=== PATIENT | male | born 1980 ===

== ENCOUNTER 2019-01-16 08:07 | Observation (INO) | payer SELFPAY ==
--- NOTE | 2019-01-16 08:30 | C.PDOC ---
History Of Present Illness Patient is a 38yo male with no known PMH who presents to the ED with sudden onset, nonexertional, nonradiating left-sided chest pain that began around midnight last night while lying in bed. Patient admits to using cocaine for the past 3 days, reports previous episode of similar chest pain one year ago when he last used cocaine. Denies other drug use. Patient reports one episode of vomiting last night accompanied by SOB. No known history of HTN, DM, or family history of CO. <Tanna Burrell - Last Filed: 01/16/19 10:43> <Jessica Tapia - Last Filed: 01/16/19 10:28> <Tanna Burrell - Last Filed: 01/16/19 10:43> Time Seen by Provider: 01/16/19 08:08 Chief Complaint (Nursing): Chest Pain Past Medical History Vital Signs: Last Vital Signs Temp 97 F L 01/16/19 08:13 Pulse 69 01/16/19 08:13 Resp 18 01/16/19 08:13 BP 151/95 H 01/16/19 08:13 Pulse Ox 100 01/16/19 09:55 <Jessica Tapia - Last Filed: 01/16/19 10:28> Vital Signs: Last Vital Signs Temp 97 F L 01/16/19 08:13 Pulse 69 01/16/19 08:13 Resp 18 01/16/19 08:13 BP 151/95 H 01/16/19 08:13 Pulse Ox 100 01/16/19 08:13 Primary Care Provider: FAMILY PROVIDER,NO - Medical History PMH: No Chronic Diseases Family History: States: No Known Family Hx - Social History Hx Alcohol Use: Yes Hx Substance Use: Yes - Immunization History Hx Tetanus Toxoid Vaccination: No Hx Influenza Vaccination: No Hx Pneumococcal Vaccination: No <Tanna Burrell - Last Filed: 01/16/19 10:43> Review Of Systems Except As Marked, All Systems Reviewed And Found Negative. <Tanna Burrell - Last Filed: 01/16/19 10:43> Physical Exam - Physical Exam Appears: Well, Non-toxic, No Acute Distress Skin: Normal Color, Warm, Dry Chest: Tenderness (Left sided chest tender to palpation. Pain with left arm mo vement) Cardiovascular: Rhythm Regular, No Friction Rub, No Murmur Respiratory: Normal Breath Sounds Gastrointestinal/Abdominal: Normal Exam Neurological/Psych: Oriented x3, Normal Speech, Normal Cognition <Tanna Burrell - Last Filed: 01/16/19 10:43> ED Course And Treatment - Laboratory Results Result Diagrams: 01/16/19 08:39 01/16/19 08:39 Lab Results: Troponin I < 0.0120 ng/mL (0.00-0.120) 01/16/19 08:39 Total Bilirubin 1.4 mg/dL (0.2-1.3) H 01/16/19 08:39 AST 35 U/L (17-59) 01/16/19 08:39 ALT 32 U/L (21-72) 01/16/19 08:39 Alkaline Phosphatase 81 U/L (38-126) 01/16/19 08:39 Total Protein 8.3 g/dL (6.3-8.3) 01/16/19 08:39 Albumin 4.7 g/dL (3.5-5.0) 01/16/19 08:39 Globulin 3.6 gm/dL (2.2-3.9) 01/16/19 08:39 Albumin/Globulin Ratio 1.3 (1.0-2.1) 01/16/19 08:39 <Jessica Tapia - Last Filed: 01/16/19 10:28> - Laboratory Results Result Diagrams: 01/16/19 08:39 01/16/19 08:39 ECG: Viewed By Me ECG Rhythm: Sinus Rhythm ECG Interpretation: Normal, No Acute Changes Rate From EC O2 Sat by Pulse Oximetry: 100 Progress Note: EKG reassuring RRR with no ST/T changes. Will obtain labs, CXR. Reevaluation Time: 09:20 (Reviewed labs and CXR. Troponin neg, CXR nml. Will repeat EKG and d/c if no acute changes) <Tanna Burrell - Last Filed: 01/16/19 10:43> ED EKG Interpretation - EKG Interpretation #2 Interpretation: Repeat EKG at 9:27 sinus bradycardia at 44bpm with no ST elevations <Tanna Burrell - Last Filed: 01/16/19 10:43> Disposition Discussed With : Nayana Gordon Counseled Patient/Family Regarding: Studies Performed, Diagnosis, Need For Followup - Disposition Disposition Time: 10:28 <Jessica Tapia - Last Filed: 01/16/19 10:28> <Tanna Burrell - Last Filed: 01/16/19 10:43> - Disposition Referrals: [facility] [Outside] Disposition: HOSPITALIZED Condition: GUARDED Forms: [employer] (Italian) - Clinical Impression Clinical Impression: Chest pain, Cocaine abuse Addendum Addendum: 01/16/19 09:52 Upon further questioning, patient admits to 3-day binge of etoh in addition to cocaine, requesting etoh detox. Has had detox in past. Reports some dizziness, feeling "shaky," with continued chest discomfort. <Tanna Burrell - Last Filed: 01/16/19 10:43> Decision To Admit - Pt Status Changed To: Hospital Disposition Of: Observation - . Bed Request Type: Telemetry Admitting Physician: Nayana Gordon <Jessica Tapia - Last Filed: 01/16/19 10:28> <Tanna Burrell - Last Filed: 01/16/19 10:43> - . Patient Diagnosis: Chest pain, Cocaine abuse
[2019-01-16 08:42] LABS: BASO # 0.1 K/uL (0.0-0.2); BASO % 0.9 % (0.0-2.0); EOS # 0.1 K/uL (0.0-0.7); EOS % 0.9 % (0.0-4.0); HEMOGLOBIN 15.7 g/dL (12.0-18.0); LYMPH # 2.9 K/uL (1.0-4.3); LYMPH % 18.2 % (20.0-40.0); MEAN CELL VOLUME 91.3 fL (80.0-94.0); MEAN CORPUSCULAR HEMOGLOBIN 31.5 pg (27.0-31.0); MEAN CORPUSCULAR HGB CONC 34.5 g/dL (33.0-37.0); MEAN PLATELET VOLUME 8.8 fL (7.2-11.7); MONO # 1.2 K/uL (0.0-0.8); MONO % 7.8 % (0.0-10.0); NEUT # 11.3 K/uL (1.8-7.0); NEUT % 72.2 % (50.0-75.0); RBC 4.97 Mil/uL (4.40-5.90); RED CELL DISTRIBUTION WIDTH 13.4 % (11.5-14.5); WHITE BLOOD COUNT 15.7 K/uL (4.8-10.8)
[2019-01-16 08:56] LABS: ALB/GLOB RATIO 1.3 (1.0-2.1); ALBUMIN 4.7 g/dL (3.5-5.0); ALT/SGPT 32 U/L (21-72); AST/SGOT 35 U/L (17-59); BLOOD UREA NITROGEN 17 mg/dL (9-20); CALCIUM 9.1 mg/dl (8.6-10.4); GFR NON-AFRICAN AMERICAN > 60
[2019-01-16 10:36] LABS: BARBITURATES, UR NEGATIVE (NEGATIVE); BENZODIAZEPINES, UR NEGATIVE (NEGATIVE); OPIATES, UR NEGATIVE (NEGATIVE); PHENCYCLIDINE, UR NEGATIVE (NEGATIVE)
[2019-01-16] MEDS ORDERED: Potassium Chloride 20 mEq ER Tab PO ONE ×2 (10:45→11:30)
[2019-01-16 11:36] LABS: B-TYPE NATRIURETIC PEPTIDE 41.2 pg/mL (0-450)
[2019-01-16 12:20] LABS: D DIMER < 200 ng/mlDDU (0-243); INR 1.2
--- NOTE | 2019-01-16 14:33 | RAD ---
Date of service: 01/16/2019 HISTORY: chest pain COMPARISON: No prior. TECHNIQUE: Chest PA and lateral views FINDINGS: LUNGS: No active pulmonary disease. PLEURA: No significant pleural effusion identified. No pneumothorax apparent. CARDIOVASCULAR: No aortic atherosclerotic calcification present. Normal cardiac size. No pulmonary vascular congestion. OSSEOUS STRUCTURES: Minor multilevel degenerative spondylosis of the thoracic spine VISUALIZED UPPER ABDOMEN: Normal. OTHER FINDINGS: None. IMPRESSION: No active disease.
[2019-01-16] MEDS: Sodium Chloride 0.9% 1,000 ML IV SCH (15:00)
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
[2019-01-16 16:31] VITALS: RESP 20
[2019-01-16 23:24] LABS: CK-MB 0.64 ng/mL (0.0-3.38)
[2019-01-17] MEDS: Sodium Chloride 0.9% 1,000 ML IV SCH (04:55)
[2019-01-17 08:00] LABS: BASO # 0.1 K/uL (0.0-0.2); BASO % 0.6 % (0.0-2.0); EOS # 0.2 K/uL (0.0-0.7); EOS % 1.7 % (0.0-4.0); HEMOGLOBIN 14.3 g/dL (12.0-18.0); LYMPH % 28.3 % (20.0-40.0); MEAN CELL VOLUME 91.6 fL (80.0-94.0); MEAN CORPUSCULAR HEMOGLOBIN 31.5 pg (27.0-31.0); MEAN CORPUSCULAR HGB CONC 34.4 g/dL (33.0-37.0); MEAN PLATELET VOLUME 9.3 fL (7.2-11.7); MONO # 0.7 K/uL (0.0-0.8); MONO % 6.7 % (0.0-10.0); NEUT # 6.7 K/uL (1.8-7.0); NEUT % 62.7 % (50.0-75.0); NRBC % 0.1 % (0.0-2.0); RBC 4.55 Mil/uL (4.40-5.90); RED CELL DISTRIBUTION WIDTH 13.4 % (11.5-14.5); WHITE BLOOD COUNT 10.7 K/uL (4.8-10.8)
[2019-01-17 08:36] LABS: ALB/GLOB RATIO 1.4 (1.0-2.1); ALBUMIN 3.7 g/dL (3.5-5.0); ALT/SGPT 41 U/L (21-72); AST/SGOT 25 U/L (17-59); BLOOD UREA NITROGEN 15 mg/dL (9-20); CALCIUM 8.9 mg/dl (8.6-10.4); GFR NON-AFRICAN AMERICAN > 60
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
[2019-01-17] MEDS ORDERED: Multiple Vitamins Tab PO SCH (12:00)
--- NOTE | 2019-01-17 15:42 | CP.PCM.DIS ---
<Lucero Nuñez - Last Filed: 01/17/19 17:35> Provider - Provider Date of Admission: 01/16/19 10:34 Attending physician: Nayana Gordon DO Consults: 01/16/19 14:42 Pastoral Care Referral Routine Comment: Physician Instructions: Reason For Exam: spiritual Psychiatry Consult Routine Comment: Consulting Provider: Shayne Franks Consulting Physician: Shayne Franks Reason for Consult: alcohol abuse, suspect underlying depression Time Spent in preparation of Discharge (in minutes): 45 Hospital Course - Lab Results Lab Results: Most Recent Lab Values WBC 10.7 K/uL (4.8-10.8) 01/17/19 07:54 RBC 4.55 Mil/uL (4.40-5.90) 01/17/19 07:54 Hgb 14.3 g/dL (12.0-18.0) 01/17/19 07:54 Hct 41.7 % (35.0-51.0) 01/17/19 07:54 MCV 91.6 fL (80.0-94.0) 01/17/19 07:54 MCH 31.5 pg (27.0-31.0) H 01/17/19 07:54 MCHC 34.4 g/dL (33.0-37.0) 01/17/19 07:54 RDW 13.4 % (11.5-14.5) 01/17/19 07:54 Plt Count 225 K/uL (130-400) 01/17/19 07:54 MPV 9.3 fL (7.2-11.7) 01/17/19 07:54 Neut % (Auto) 62.7 % (50.0-75.0) 01/17/19 07:54 Lymph % (Auto) 28.3 % (20.0-40.0) 01/17/19 07:54 [place] % (Auto) 6.7 % (0.0-10.0) 01/17/19 07:54 Eos % (Auto) 1.7 % (0.0-4.0) 01/17/19 07:54 Baso % (Auto) 0.6 % (0.0-2.0) 01/17/19 07:54 Neut # (Auto) 6.7 K/uL (1.8-7.0) 01/17/19 07:54 Lymph # (Auto) 3.0 K/uL (1.0-4.3) 01/17/19 07:54 [place] # (Auto) 0.7 K/uL (0.0-0.8) 01/17/19 07:54 Eos # (Auto) 0.2 K/uL (0.0-0.7) 01/17/19 07:54 Baso # (Auto) 0.1 K/uL (0.0-0.2) 01/17/19 07:54 PT 13.0 SECONDS (9.7-12.2) H 01/16/19 12:19 INR 1.2 01/16/19 12:19 D-Dimer, Quantitative < 200 ng/mlDDU (0-243) 01/16/19 12:19 Sodium 143 mmol/L (132-148) 01/17/19 07:55 Potassium 3.7 mmol/L (3.6-5.2) 01/17/19 07:55 Chloride 102 mmol/L (98-107) 01/17/19 07:55 Carbon Dioxide 28 mmol/L (22-30) 01/17/19 07:55 Anion Gap 17 (10-20) 01/17/19 07:55 BUN 15 mg/dL (9-20) 01/17/19 07:55 Creatinine 1.0 mg/dL (0.8-1.5) 01/17/19 07:55 Est GFR ( Amer) > 60 01/17/19 07:55 Est GFR (Non-Af Amer) > 60 01/17/19 07:55 POC Glucose (mg/dL) 101 mg/dL (65-110) 01/17/19 11:20 Random Glucose 87 mg/dL (75-110) 01/17/19 07:55 Hemoglobin A1c 5.5 % (4.2-6.5) 01/16/19 11:12 Calcium 8.9 mg/dl (8.6-10.4) 01/17/19 07:55 Magnesium 2.2 mg/dL (1.6-2.3) 01/16/19 08:39 Total Bilirubin 0.9 mg/dL (0.2-1.3) 01/17/19 07:55 AST 25 U/L (17-59) 01/17/19 07:55 ALT 41 U/L (21-72) 01/17/19 07:55 Alkaline Phosphatase 65 U/L (38-126) 01/17/19 07:55 Total Creatine Kinase 90 U/L (55-170) 01/16/19 22:41 CK-MB (Mass) 0.64 ng/mL (0.0-3.38) 01/16/19 22:41 Troponin I < 0.0120 ng/mL (0.00-0.120) 01/16/19 22:41 NT-Pro-B Natriuret Pep 41.2 pg/mL (0-450) 01/16/19 08:39 Total Protein 6.5 g/dL (6.3-8.3) 01/17/19 07:55 Albumin 3.7 g/dL (3.5-5.0) 01/17/19 07:55 Globulin 2.7 gm/dL (2.2-3.9) 01/17/19 07:55 Albumin/Globulin Ratio 1.4 (1.0-2.1) 01/17/19 07:55 Triglycerides 74 mg/dL (0-149) 01/16/19 11:12 Cholesterol 158 mg/dL (0-199) 01/16/19 11:12 LDL Cholesterol Direct 87 mg/dL (0-129) 01/16/19 11:12 HDL Cholesterol 60 mg/dL (30-70) 01/16/19 11:12 Thyroxine (T4) 9.33 ug/dL (5.5-11.0) 01/16/19 11:12 TSH 3rd Generation 1.14 mIU/L (0.46-4.68) 01/16/19 11:12 Urine Opiates Screen Negative (NEGATIVE) 01/16/19 10:06 Urine Methadone Screen Negative (NEGATIVE) 01/16/19 10:06 Ur Barbiturates Screen Negative (NEGATIVE) 01/16/19 10:06 Ur Phencyclidine Scrn Negative (NEGATIVE) 01/16/19 10:06 Ur Amphetamines Screen Negative (NEGATIVE) 01/16/19 10:06 U Benzodiazepines Scrn Negative (NEGATIVE) 01/16/19 10:06 U Oth Cocaine Metabols Positive (NEGATIVE) H 01/16/19 10:06 U Cannabinoids Screen Negative (NEGATIVE) 01/16/19 10:06 Alcohol, Quantitative < 10 mg/dl (0-10) 01/16/19 08:39 - Hospital Course Hospital Course: HPI: Patient is a 38 year old male with a past medical history of polysubstance abuse, who presents with complaints of left sided chest pain. The chest pain started last night at midnight just after laying down. He describes the pain as a sharp stabbing pain that comes and goes and lasts for a few seconds at a time. He also states he felt like his heart rate was slow just before having the chest pain. During the first episode of sharp pain that lasted for a few seconds, he also had tingling sensation that radiated down his left arm, but he has not had that sensation since. The patient admits to snorting 10 bags of cocaine and drinking 5 24-oz bottles of beer prior to having this pain. He states he has had a similar experience one year ago just before he went to detox for alcohol and cocaine. The patient admits to consuming approximately 10 24-oz beers per day and had been snorting 30 bags of cocaine over the past 3 days. He has no additional complaint and denies palpitations, dyspnea, cough, dizziness, headaches, vision changes, nausea, vomiting, fevers, abdominal pain, leg pain, leg swelling, a/v hallucinations, tremors, dysuria, constipation, and diarrhea. Hospital course: Patient was admitted on 01/16/19 for chest pain, r/o acs. Troponins were ordered and were negative x3. EKGs were ordered and showed nrs initially, with two additional EKGS showing sinus bradycardia. Ddimer, A1c, lipids, BNP, thyroid panel were all within normal ranges. UDS was positive for cocaine. Serum alcohol was negative. Patient was seen and examined today and reports feeling better and no longer having pain. The pain was likely secondary to substance abuse. Psychiatry (Dr. Franks) was consulted for suspected depression and substance abuse. Patient was started on mirtazepine. Patient is stable for discharge to home with new medication for mirtazepine, folic acid, multivitamin, and thiamine, as well as recommendations to go to AA/NA meetings and rehab. A list of rehab facilities in [place] were provided. This is a brief summary of the hospital course. Please see EMR for more details. Discharge Exam - Additional Findings Additional findings: - Constitutional Appears: Non-toxic, No Acute Distress - Head Exam Head Exam: ATRAUMATIC, NORMAL INSPECTION - Eye Exam Eye Exam: EOMI, Normal appearance - ENT Exam ENT Exam: Mucous Membranes Moist - Respiratory Exam Respiratory Exam: Clear to Auscultation Bilateral, NORMAL BREATHING PATTERN. absent: Rales, Rhonchi, Wheezes, Respiratory Distress - Cardiovascular Exam Cardiovascular Exam: REGULAR RHYTHM, +S1, +S2. absent: Diastolic murmur, Rubs, Systolic Murmur - GI/Abdominal Exam GI & Abdominal Exam: Normal Bowel Sounds, Soft. absent: Distended, Firm, Guarding - Extremities Exam Extremities exam: Positive for: normal inspection, pedal pulses present. Negative for: pedal edema, tenderness - Neurological Exam Neurological exam: Alert, CN II-XII Intact, Oriented x3 - Psychiatric Exam Psychiatric exam: Normal Affect, Normal Mood - Skin Skin Exam: Dry, Intact, Normal Color, Warm Discharge Plan - Discharge Medications Prescriptions: RX: Folic Acid 1 mg PO DAILY #30 tab RX: Mirtazapine [Remeron] 15 mg PO HS #30 tab RX: Multivitamins [Hexavitamin] 1 tab PO DAILY #30 tab RX: Thiamine [Vitamin B1 Tab] 100 mg PO DAILY #30 tab - Follow Up Plan Condition: STABLE Disposition: HOME/ ROUTINE Instructions: Heart Healthy Diet, Quitting Smoking for Older Adults, Chest Pain (DC), Quitting Smoking, Folic Acid, Mirtazapine, Thiamine, Vitamins (Multiple/Oral), Polysubstance Abuse (DC) Additional Instructions: Patient is stable for discharge to home per Dr. Gordon and Dr. Franks. Please continue the following medications: 1. Mirtazepine 15mg PO HS- take 1 tablet at bedtime daily 2. Folic acid- take 1 tablet daily 3. Multivitamin- take 1 tablet daily 4. Thiamine 100mg- take 1 tablet daily Please make an appointment with your primary care doctor within one week of discharge. Return to the nearest ER if symptoms return or worsen. *Please start going to AA/NA meetings. *Please consider a rehab program. Listed below are some options for rehabs in the [place] area. [facility] [phone] [place] [address] Main Intake [facility] [employer] [facility] [address] [place] [phone] Main [phone] Intake [facility] [phone] [place] [address] Main [facility] [address] [place] [phone] [phone] [facility] [phone] [place] [address] Main [phone] Intake [phone] Referrals: [facility] [Outside] <Nayana Gordon V - Last Filed: 01/17/19 19:23> Provider - Provider Date of Admission: 01/16/19 10:34 Attending physician: Nayana Gordon DO Consults: 01/16/19 14:42 Pastoral Care Referral Routine Comment: Physician Instructions: Reason For Exam: spiritual Psychiatry Consult Routine Comment: Consulting Provider: Shayne Franks Consulting Physician: Shayne Franks Reason for Consult: alcohol abuse, suspect underlying depression Hospital Course - Lab Results Lab Results: Most Recent Lab Values WBC 10.7 K/uL (4.8-10.8) 01/17/19 07:54 RBC 4.55 Mil/uL (4.40-5.90) 01/17/19 07:54 Hgb 14.3 g/dL (12.0-18.0) 01/17/19 07:54 Hct 41.7 % (35.0-51.0) 01/17/19 07:54 MCV 91.6 fL (80.0-94.0) 01/17/19 07:54 MCH 31.5 pg (27.0-31.0) H 01/17/19 07:54 MCHC 34.4 g/dL (33.0-37.0) 01/17/19 07:54 RDW 13.4 % (11.5-14.5) 01/17/19 07:54 Plt Count 225 K/uL (130-400) 01/17/19 07:54 MPV 9.3 fL (7.2-11.7) 01/17/19 07:54 Neut % (Auto) 62.7 % (50.0-75.0) 01/17/19 07:54 Lymph % (Auto) 28.3 % (20.0-40.0) 01/17/19 07:54 [place] % (Auto) 6.7 % (0.0-10.0) 01/17/19 07:54 Eos % (Auto) 1.7 % (0.0-4.0) 01/17/19 07:54 Baso % (Auto) 0.6 % (0.0-2.0) 01/17/19 07:54 Neut # (Auto) 6.7 K/uL (1.8-7.0) 01/17/19 07:54 Lymph # (Auto) 3.0 K/uL (1.0-4.3) 01/17/19 07:54 [place] # (Auto) 0.7 K/uL (0.0-0.8) 01/17/19 07:54 Eos # (Auto) 0.2 K/uL (0.0-0.7) 01/17/19 07:54 Baso # (Auto) 0.1 K/uL (0.0-0.2) 01/17/19 07:54 PT 13.0 SECONDS (9.7-12.2) H 01/16/19 12:19 INR 1.2 01/16/19 12:19 D-Dimer, Quantitative < 200 ng/mlDDU (0-243) 01/16/19 12:19 Sodium 143 mmol/L (132-148) 01/17/19 07:55 Potassium 3.7 mmol/L (3.6-5.2) 01/17/19 07:55 Chloride 102 mmol/L (98-107) 01/17/19 07:55 Carbon Dioxide 28 mmol/L (22-30) 01/17/19 07:55 Anion Gap 17 (10-20) 01/17/19 07:55 BUN 15 mg/dL (9-20) 01/17/19 07:55 Creatinine 1.0 mg/dL (0.8-1.5) 01/17/19 07:55 Est GFR ( Amer) > 60 01/17/19 07:55 Est GFR (Non-Af Amer) > 60 01/17/19 07:55 POC Glucose (mg/dL) 101 mg/dL (65-110) 01/17/19 11:20 Random Glucose 87 mg/dL (75-110) 01/17/19 07:55 Hemoglobin A1c 5.5 % (4.2-6.5) 01/16/19 11:12 Calcium 8.9 mg/dl (8.6-10.4) 01/17/19 07:55 Magnesium 2.2 mg/dL (1.6-2.3) 01/16/19 08:39 Total Bilirubin 0.9 mg/dL (0.2-1.3) 01/17/19 07:55 AST 25 U/L (17-59) 01/17/19 07:55 ALT 41 U/L (21-72) 01/17/19 07:55 Alkaline Phosphatase 65 U/L (38-126) 01/17/19 07:55 Total Creatine Kinase 90 U/L (55-170) 01/16/19 22:41 CK-MB (Mass) 0.64 ng/mL (0.0-3.38) 01/16/19 22:41 Troponin I < 0.0120 ng/mL (0.00-0.120) 01/16/19 22:41 NT-Pro-B Natriuret Pep 41.2 pg/mL (0-450) 01/16/19 08:39 Total Protein 6.5 g/dL (6.3-8.3) 01/17/19 07:55 Albumin 3.7 g/dL (3.5-5.0) 01/17/19 07:55 Globulin 2.7 gm/dL (2.2-3.9) 01/17/19 07:55 Albumin/Globulin Ratio 1.4 (1.0-2.1) 01/17/19 07:55 Triglycerides 74 mg/dL (0-149) 01/16/19 11:12 Cholesterol 158 mg/dL (0-199) 01/16/19 11:12 LDL Cholesterol Direct 87 mg/dL (0-129) 01/16/19 11:12 HDL Cholesterol 60 mg/dL (30-70) 01/16/19 11:12 Thyroxine (T4) 9.33 ug/dL (5.5-11.0) 01/16/19 11:12 TSH 3rd Generation 1.14 mIU/L (0.46-4.68) 01/16/19 11:12 Urine Opiates Screen Negative (NEGATIVE) 01/16/19 10:06 Urine Methadone Screen Negative (NEGATIVE) 01/16/19 10:06 Ur Barbiturates Screen Negative (NEGATIVE) 01/16/19 10:06 Ur Phencyclidine Scrn Negative (NEGATIVE) 01/16/19 10:06 Ur Amphetamines Screen Negative (NEGATIVE) 01/16/19 10:06 U Benzodiazepines Scrn Negative (NEGATIVE) 01/16/19 10:06 U Oth Cocaine Metabols Positive (NEGATIVE) H 01/16/19 10:06 U Cannabinoids Screen Negative (NEGATIVE) 01/16/19 10:06 Alcohol, Quantitative < 10 mg/dl (0-10) 01/16/19 08:39 Attending/Attestation - Attestation I have personally seen and examined this patient.: Yes I have fully participated in the care of the patient.: Yes I have reviewed all pertinent clinical information, including history, physical exam and plan: Yes Notes (Text): Patient seen, examined and case discussed with day-time resident. Patient seen this morning. Patient reports he is feeling better. hydrated. Patient given dose of Toradol to relieve muscoskeletal pain. EKG noted sinus bradycardia; patient is asymptomatic. Cardiac enzymes are negative. Lipid panel is without normal. Patient hgba1c is normal. Patient was seen and evaluated by psychiatrist, noted for mild depression; patient to start Remeron 15mg PO HS and to follow-up outpatient for rehab. List of rehabs provided to the patient upon discharge as recommended by social services designee from the psych floor. Patient counselled extensively regarding adverse events associated with drug use (cocaine and alcohol) including but not limited to vasospasm, heart attack, deadly heart arrhythmias, and . patient recommended to establish care with the [facility] or to follow-up PMD; if patient chooses to establish care in the [facility], may get referral to the [facility] as well. This is a summary of patient's hospitalization. Please refer to EMR for full detail of record. Discharge diagnoses: 1. Chest pain-->resolved Assessment/Plan * Likely secondary to substance abuse * Tropx3: negative * DDimer: <200 * TSH/T4: wnl * Lipid panel: TG 74, Chol 158, LDL 87, HDL 60 * A1c: 5.5 * BNP: 41.2 wnl * Started ASA 81mg PO daily as cardioprotectant 2. Polysubstance abuse, history of Assessment/Plan * Cocaine and alcohol abuse; tobacco abuse * UDS:+cocaine * Serum Alcohol<10 * [facility] protocol to assess for w/d symptoms, neuro check Q4h * Psychiatrist consult, Dr. Franks; help appreciated * Patient counselled extensively regarding adverse events associated with drug use (cocaine and alcohol) including but not limited to vasospasm, heart attack, deadly heart arrhythmias, and . 3. Electrolyte abnormality (resolved) Assessment/Plan * K+ at admission: 3.5; repleted * Continue to monitor 4. Prophylaxis * GI: not indicated at this time * DVT PPx: SCDs * Heart healthy diet * Discussed code status w/patient: Full Code
[2019-01-17 19:19] VITALS: PULSE 66
[2019-01-17 19:20] VITALS: BP 117/53; TEMP 98.4; O2SAT 98
--- NOTE | 2019-01-18 13:18 | CARD ---
APPROVED REPORT Date of service: 01/16/2019 EKG Measurement Heart [id number] <Conclusion> Marked sinus bradycardia Minimal voltage criteria for LVH, may be normal variant Abnormal ECG
--- NOTE | 2019-01-18 13:19 | CARD ---
APPROVED REPORT Date of service: 01/16/2019 EKG Measurement Heart [id number] <Conclusion> Normal sinus rhythm Normal ECG
== END 2019-01-17 18:44 | disposition home or self-care (01) ==
LOC: C.ER 08:07 → C.9E 10:34 → C.6T 11:20
PROVIDERS: ADMIT Hospitalist; ATTEND Hospitalist
DX: R07.89 Other chest pain (principal); F17.210 Nicotine dependence, cigarettes, uncomplicated; Z59.0 Homelessness; F32.9 Major depressive disorder, single episode, unspecified; F14.10 Cocaine abuse, uncomplicated; Y90.0 Blood alcohol level of less than 20 mg/100 ml
CPT/HCPCS: 36415; 71046; 80053; 80061; 82948; 83036; 83735; 83880; 84436; 84443; 84484; 85025; 85378; 85610; 93005; 99284; G0378; G0480; J1885; J7030